=== PATIENT | male | born 1965 | race Caucasian/White ===

== ENCOUNTER → 2024-01-25 | Outpatient (CLI) | payer OTHER ==
[2024-01-25 10:19] LABS: Basophils # (A) 0.05 X 10*3/uL (0.00-0.10); Basophils % (A) 0.7 %; Eosinophils # (A) 0.24 X 10*3/uL (0.04-0.35); Eosinophils % (A) 3.6 %; HCT 46.7 % (39.6-50.0); Lymphocytes # (A) 2.87 X 10*3/uL (0.90-5.00); MCH 31.5 pg (27.0-32.0); MCHC 32.1 g/dL (32.0-37.0); MCV 98.1 FL (80.0-97.0); Monocytes # (A) 0.85 X 10*3/uL (0.20-1.00); Monocytes % (A) 12.7 %; NRBC Per 100 WBC 0 X 10*3/uL (0.00-0.01); Neutrophils # (A) 2.64 X 10*3/uL (1.80-7.70); Neutrophils % (A) 39.7 %; Platelet Count 288 X 10*3/uL (140-440); RBC 4.76 X 10*6/uL (4.40-5.60); RDW 13.3 % (11.5-14.5); WBC 6.67 X 10*3/uL (4.50-10.00)
[2024-01-25 10:57] LABS: % Iron Saturation 17.74 (15.00-50.00); ALT 34 U/L (10-49); AST 27 U/L (14-35); Albumin 4.6 g/dL (3.8-4.9); Albumin/Globulin Ratio 1.84 Ratio (1.60-3.17); Alkaline Phosphatase 73 U/L (41-126); Blood Urea Nitrogen 21.5 mg/dL (9.0-27.0); C Reactive Protein <0.30 mg/dL (0.00-0.80); Calcium 9.8 mg/dL (8.7-10.3); Carbon Dioxide 25.8 mmol/L (21.6-31.8); Chloride 108 mmol/L (96-109); Chol/HDL Ratio 3.49 Ratio; Creatine Kinase 230 U/L (35-257); Ferritin 34.7 ng/mL (22.0-322.0); Globulin 2.5 g/dL (1.6-3.3); Glucose 135 mg/dL (70-110); Iron 83 UG/DL (65-175); Magnesium 1.9 mg/dL (1.5-2.4); Prostate Specific Antigen 1.44 ng/mL (0.000-4.500); Sodium 144 mmol/L (135-145); Total Bilirubin 0.3 mg/dL (0.3-1.2); Total Iron Binding Capacity 468 UG/DL (228-460); Total Protein 7.1 g/dL (6.2-8.2)
[2024-01-25 11:09] LABS: Erythrocyte Sedimentation Rate 9 mm/Hr (0-20)
== END | disposition home or self-care (01) ==
LOC: LABWHC1 07:18
PROVIDERS: ATTEND Internal Medicine
DX: Z00.00 Encounter for general adult medical examination without abnormal findings (principal); D64.9 Anemia, unspecified; E11.65 Type 2 diabetes mellitus with hyperglycemia; R80.9 Proteinuria, unspecified; E55.9 Vitamin D deficiency, unspecified; E87.8 Other disorders of electrolyte and fluid balance, not elsewhere classified; E78.5 Hyperlipidemia, unspecified
CPT/HCPCS: 36415; 80053; 80061; 82306; 82550; 82728; 83036; 83540; 83550; 83735; 84100; 84153; 84443; 85025; 85652; 86140

== ENCOUNTER → 2024-10-18 | Outpatient (CLI) | payer OTHER ==
[2024-10-18 15:17] LABS: Basophils # (A) 0.06 X 10*3/uL (0.00-0.10); Basophils % (A) 1.2 %; Eosinophils # (A) 0.15 X 10*3/uL (0.04-0.35); Eosinophils % (A) 3.0 %; HCT 45.8 % (39.6-50.0); HGB 15.1 g/dL (13.0-17.0); Immature Grans, Automated 0.20 %; Lymphocytes # (A) 2.37 X 10*3/uL (0.90-5.00); Lymphocytes % (A) 47.9 %; MCH 31.1 pg (27.0-32.0); MCHC 33.0 g/dL (32.0-37.0); MCV 94.2 FL (80.0-97.0); Monocytes # (A) 0.42 X 10*3/uL (0.20-1.00); Monocytes % (A) 8.5 %; NRBC Per 100 WBC 0 X 10*3/uL (0.00-0.01); Neutrophils # (A) 1.94 X 10*3/uL (1.80-7.70); Neutrophils % (A) 39.2 %; Platelet Count 236 X 10*3/uL (140-440); RBC 4.86 X 10*6/uL (4.40-5.60); RDW 12.8 % (11.5-14.5); WBC 4.95 X 10*3/uL (4.50-10.00)
[2024-10-18 16:00] LABS: BUN/Creat Ratio 16.60 Ratio (12.00-20.00); Blood Urea Nitrogen 16.6 mg/dL (9.0-27.0); Chloride 100 mmol/L (96-109); Cholesterol 250.00 mg/dL (0.00-200.00); Creatine Kinase 181 U/L (35-257); Glucose 303 mg/dL (70-110); HDL Cholesterol 41.00 mg/dL (40.00-60.00); Iron 60 UG/DL (65-175); LDL Cholesterol,Calculated 156.2 mg/dL (0.0-131.0); Magnesium 1.9 mg/dL (1.5-2.4); Potassium 4.2 mmol/L (3.5-5.5); Sodium 134 mmol/L (135-145); Total Iron Binding Capacity 423 UG/DL (228-460); Triglycerides 264.00 mg/dL (0.00-149.00); Uric Acid 6.3 mg/dL (3.7-8.7); VLDL Calculation 52.80 mg/dL (5.00-40.00)
[2024-10-18 16:01] LABS: ALT 59 U/L (10-49); AST 29 U/L (14-35); Albumin 4.4 g/dL (3.8-4.9); Albumin/Globulin Ratio 1.76 Ratio (1.60-3.17); Alkaline Phosphatase 93 U/L (41-126); Anion Gap 10.90 mmol/L (4.00-12.00); Calcium 9.1 mg/dL (8.7-10.3); Carbon Dioxide 23.1 mmol/L (21.6-31.8); Ferritin 101.0 ng/mL (22.0-322.0); Globulin 2.5 g/dL (1.6-3.3); Prostate Specific Antigen 0.59 ng/mL (0.000-4.500); Total Protein 6.9 g/dL (6.2-8.2)
== END | disposition home or self-care (01) ==
LOC: LABWHC1 09:25
PROVIDERS: ATTEND Internal Medicine
DX: Z00.00 Encounter for general adult medical examination without abnormal findings (principal); I10 Essential (primary) hypertension; E55.9 Vitamin D deficiency, unspecified; D64.9 Anemia, unspecified; E87.8 Other disorders of electrolyte and fluid balance, not elsewhere classified; E78.5 Hyperlipidemia, unspecified; E03.9 Hypothyroidism, unspecified; M10.9 Gout, unspecified; M81.0 Age-related osteoporosis without current pathological fracture; R80.9 Proteinuria, unspecified
CPT/HCPCS: 36415; 80053; 80061; 82043; 82306; 82550; 82570; 82728; 83036; 83540; 83550; 83735; 83970; 84100; 84153; 84443; 84550; 85025; 85652; 86140; 87086